=== PATIENT | male | born 1990 | race Caucasian/White ===

== ENCOUNTER 2023-12-20 22:26 | Emergency (ER) | payer BC, OTHER ==
[2023-12-20] MEDS: Take Home: Ondansetron 4 MG Tab.DIS, 5 Tab Pack PO ONE (23:17)
== END 2023-12-20 23:29 | disposition home or self-care (01) ==
LOC: LL.ED 22:26
DX: K52.9 Noninfective gastroenteritis and colitis, unspecified (principal); Z79.899 Other long term (current) drug therapy
CPT/HCPCS: 82947; 99284; Q0162